=== PATIENT | female | born 1975 | race Caucasian/White ===

== ENCOUNTER 2017-10-15 16:38 | Emergency (ER) | payer BC | END 2017-10-15 18:24 | disposition home or self-care (01) | LOC: ERS 16:38 | DX: M26.602 Left temporomandibular joint disorder, unspecified (principal); F31.9 Bipolar disorder, unspecified; F17.210 Nicotine dependence, cigarettes, uncomplicated | CPT/HCPCS: 99282 ==

== ENCOUNTER 2019-02-10 14:03 | Emergency (ER) | payer BC ==
[2019-02-10 14:34] LABS: #Basophils 0.1 thou/uL (0.0-0.2); #Eosinphils 0.2 thou/uL (0.0-0.7); #Lymphocytes 3.9 thou/uL (1.20-3.40); #Monocytes 0.6 thou/uL (0.11-0.59); #Neutrophils 6.5 thou/uL (1.40-6.50); %Basophils 1.2 % (0.0-1.0); %Eosinophils 1.8 % (0.0-10.0); %Lymphocytes 34.7 % (21.0-51.0); %Monocytes 4.9 % (0.0-10.0); %Neutrophils 57.4 % (42.0-75.0); Hemoglobin 13.4 g/dL (12.0-16.0); Mean Corpuscular HGB CONC 32.2 g/dL (32.0-36.0); Mean Corpuscular Hemoglobin 27.6 pg (27.0-31.0); Mean Corpuscular Volume 85.6 fL (78.0-98.0); Platelet Count 320 thou/uL (130-400); RBC Distribution Width 13.2 % (11.5-14.5); Red Blood Cell (RBC) Count 4.85 mill/uL (4.20-5.40); White Blood Cell (WBC) Count 11.3 thou/uL (4.8-10.8)
[2019-02-10 14:58] LABS: ALT (SGPT) 17 U/L (8-55); AST (SGOT) 17 U/L (5-34); Albumin 4.1 g/dL (3.5-5.0); Alkaline Phosphatase 100 U/L (40-150); Anion Gap 14 mmol/L (10-20); BUN (Urea Nitrogen) 11 mg/dL (7.0-18.7); Bilirubin, Total 0.3 mg/dL (0.2-1.2); CK (CPK) 81 U/L (29-168); Calc. Creatinine Clearance 0 mL/min (70-130); Calcium 9.5 mg/dL (7.8-10.44); Carbon Dioxide 22 mmol/L (22-29); Chloride 106 mmol/L (98-107); Estimated GFR-MDRD 62; Globulin 2.8 g/dL (2.4-3.5); Glucose 109 mg/dL (70-105); Lipase 21 U/L (8-78); Potassium 3.5 mmol/L (3.5-5.1); Protein, Total 6.9 g/dL (6.0-8.3); Sodium 138 mmol/L (136-145)
--- NOTE | 2019-02-10 15:29 | RAD ---
[facility] CHEST: Date: 02/10/19 HISTORY: Chest pain. FINDINGS: Lungs are clear. Heart and mediastinum unremarkable. Vasculature normal. IMPRESSION: No acute findings. POS: [facility]
[2019-02-10 19:24] LABS: Troponin I Less than 0.010 ng/mL (< 0.028)
--- NOTE | 2019-02-12 13:25 | EKG ---
Test Reason : Blood Pressure : / mmHG Vent. Rate : 093 BPM Atrial Rate : 093 BPM P-R Int : 134 ms QRS Dur : 080 ms QT Int : 356 ms P-R-T Axes : 057 062 052 degrees QTc Int : 442 ms Normal sinus rhythm Possible Left atrial enlargement Borderline ECG Confirmed by ANGELES BOYLE M.D. ([id number]), map editor MARISSA CALDWELL ([id number]) on 02/12/2019 1:24:25 PM Referred By: Confirmed By:ANGELES BOYLE M.D.
--- NOTE | 2019-02-12 16:56 | EKG ---
Test Reason : CP Blood Pressure : / mmHG Vent. Rate : 065 BPM Atrial Rate : 065 BPM P-R Int : 144 ms QRS Dur : 082 ms QT Int : 420 ms P-R-T Axes : 061 055 025 degrees QTc Int : 436 ms Normal sinus rhythm with sinus arrhythmia Possible Left atrial enlargement Borderline ECG Confirmed by ALE ROBERSON DO ([id number]), editorial writer MARISSA CALDWELL ([id number]) on 02/12/2019 4:56:15 PM Referred By: Confirmed By:ALE ROBERSON DO
== END 2019-02-10 19:57 | disposition home or self-care (01) ==
LOC: ERS 14:03
DX: R07.9 Chest pain, unspecified (principal); F32.9 Major depressive disorder, single episode, unspecified; F17.210 Nicotine dependence, cigarettes, uncomplicated
CPT/HCPCS: 36415; 71045; 80053; 82550; 83690; 84484; 85025; 93005; 94760

== ENCOUNTER 2024-02-26 19:23 | Emergency (ER) | payer SELFPAY ==
[2024-02-26] MEDS ORDERED: Ipratropium/Albuterol 3 ML NEB ONE (20:11)
[2024-02-26] MEDS ORDERED: predniSONE 20 MG TAB ONE (20:16)
[2024-02-26 21:52] LABS: Influenza A by NAA Not Detected (NotDetected); Influenza B by NAA Not Detected (NotDetected); SARS-CoV-2 NAA Rapid Test Not Detected (NotDetected)
== END 2024-02-26 21:37 | disposition home or self-care (01) ==
LOC: ERS 19:23
DX: J45.901 Unspecified asthma with (acute) exacerbation (principal); F17.210 Nicotine dependence, cigarettes, uncomplicated
CPT/HCPCS: 71045; J7512; J7620

== ENCOUNTER 2024-07-05 22:26 | Observation (INO) | payer OTHER, SELFPAY ==
[~2024-07-05 22:26] MED LIST: Iopamidol-370 76% 500 ML MDV (1 ML CHARGE) ONE
[2024-07-05 22:58] LABS: #Basophils 0.11 10x3/uL (0.0-0.2); %Basophils 0.8 % (0.0-1.0); %Eosinophils 2.5 % (0.0-10.0); %Lymphocytes 33.3 % (21.0-51.0); Hematocrit 38.8 % (36.0-47.0); Hemoglobin 12.6 g/dL (12.0-16.0); Mean Corpuscular HGB CONC 32.5 g/dL (32.0-36.0); Mean Corpuscular Hemoglobin 27.8 pg (27.0-31.0); Mean Corpuscular Volume 85.5 fL (78.0-98.0); Mean Platelet Volume 9.8 fL (7.4-10.4); Platelet Count 373 10x3/uL (130-400); Red Blood Cell (RBC) Count 4.54 mill/uL (4.20-5.40)
[2024-07-05 23:09] LABS: BHCG - Serum Negative (NEGATIVE); Pregs Control Background? CLEAR/WHITE (CLR/WHITE); Pregs Control Bar Appear? YES (CONTROL BAR)
[2024-07-05] MEDS ORDERED: Acetaminophen 500 MG TAB ONE (23:09)
[2024-07-05] MEDS ORDERED: Losartan 25 MG TAB ONE (23:12)
[2024-07-05 23:16] LABS: ALT (SGPT) 15 U/L (8-55); AST (SGOT) 15 U/L (5-34); Albumin 3.7 g/dL (3.5-5.0); Alkaline Phosphatase 91 U/L (40-110); Anion Gap 13 mmol/L (10-20); BUN (Urea Nitrogen) 10 mg/dL (7.0-18.7); Bilirubin, Total 0.2 mg/dL (0.2-1.2); Calc. Creatinine Clearance 0 mL/min (70-130); Calcium 8.8 mg/dL (7.8-10.44); Carbon Dioxide 24 mmol/L (22-29); Chloride 105 mmol/L (98-107); Estimated GFR 70; Globulin 3.1 g/dL (2.4-3.5); Glucose 114 mg/dL (70-105); Potassium 3.4 mmol/L (3.5-5.1); Protein, Total 6.8 g/dL (6.0-8.3); Sodium 139 mmol/L (136-145)
[2024-07-06] MEDS ORDERED: Ketorolac Tromethamine 30 MG (1 mL) VIAL ONE (00:52)
[2024-07-06] MEDS ORDERED: Cefepime 2 GM VIAL ONE (02:23)
[2024-07-06] MEDS ORDERED: Sodium Chloride 0.9% 100 ML ONE (02:23)
[2024-07-06] MEDS: Vancomycin (BATCH) 2.5 GM in Premix 1 BAG IVPB SCH (03:41)
[2024-07-06 04:02] VITALS: BMI 45.2
[2024-07-06] MEDS ORDERED: Ondansetron PF 4 MG/2 ML Vial IVP PRN (04:32)
[2024-07-06] MEDS: Sodium Chloride 0.9% 1,000 ML IV SCH (05:01)
[2024-07-06] MEDS ORDERED: Albuterol 2.5 MG (3 mL) NEB NEB PRN (08:46)
[2024-07-06] MEDS: Famotidine/PF 20 mg/2ml Vial SLOW IVP SCH (09:31)
[2024-07-06] MEDS: Hydrochlorothiazide 25 MG TAB PO SCH (09:31)
[2024-07-06] MEDS: Losartan 25 MG TAB PO SCH (09:32)
[2024-07-06] MEDS: cefTRIAXone\\ROCEPHIN 2 GM in Sodium Chloride 0.9% 100 ML IVPB SCH (09:54)
[2024-07-06] MEDS ORDERED: Vancomycin HCl 750 MG in Sodium Chloride 0.9% 250 ML 250 ML IVPB SCH (14:00)
[2024-07-06] MEDS ORDERED: Cefepime 1 GM in Sodium Chloride 0.9% 100 ML IVPB SCH (14:00)
[2024-07-06] MEDS: Potassium Chloride 20 MEQ TAB PO SCH (18:08)
[2024-07-07 05:24] LABS: #Basophils 0.06 10x3/uL (0.0-0.2); %Basophils 0.7 % (0.0-1.0); %Eosinophils 3.4 % (0.0-10.0); %Lymphocytes 41.1 % (21.0-51.0); %Monocytes 7.7 % (0.0-10.0); %Neutrophils 46.9 % (42.0-75.0); Hematocrit 36.2 % (36.0-47.0); Hemoglobin 11.4 g/dL (12.0-16.0); Mean Corpuscular HGB CONC 31.5 g/dL (32.0-36.0); Mean Corpuscular Hemoglobin 27.4 pg (27.0-31.0); Mean Platelet Volume 10.2 fL (7.4-10.4); Platelet Count 289 10x3/uL (130-400); RBC Distribution Width 14.1 % (11.5-14.5); Red Blood Cell (RBC) Count 4.16 mill/uL (4.20-5.40)
[2024-07-07 05:41] LABS: Anion Gap 11 mmol/L (10-20); BUN (Urea Nitrogen) 10 mg/dL (7.0-18.7); Calc. Creatinine Clearance 145 mL/min (70-130); Carbon Dioxide 22 mmol/L (22-29); Chloride 111 mmol/L (98-107); Estimated GFR 86; Glucose 95 mg/dL (70-105); Potassium 4.3 mmol/L (3.5-5.1); Sodium 140 mmol/L (136-145)
[2024-07-07 08:55] VITALS: BP 156/86; TEMP 97.7
== END 2024-07-07 12:03 | disposition home or self-care (01) ==
LOC: ERS 22:26 → T4-B 07-06 03:00
PROVIDERS: ADMIT Hospitalist; ATTEND Internal Medicine
DX: M62.462 Contracture of muscle, left lower leg (principal); M79.81 Nontraumatic hematoma of soft tissue; I10 Essential (primary) hypertension; E66.01 Morbid (severe) obesity due to excess calories; Z68.42 Body mass index [BMI] 45.0-49.9, adult; Z79.51 Long term (current) use of inhaled steroids; Z79.899 Other long term (current) drug therapy
CPT/HCPCS: 36415; 80048; 80053; 82550; 83605; 84703; 85025; 87040; 93005; 96365; 96375; 96376; G0378; J0692; J0696; J1885; J3370; J3490; J7030; Q9967